=== PATIENT | female | born 1955 | race Hispanic/Latino ===

== ENCOUNTER 2017-06-29 11:51 | Observation (INO) | payer BC, SELFPAY ==
[2017-06-29 12:26] LABS: #Basophils 0.1 thou/uL (0.0-0.2); #Eosinphils 0.6 thou/uL (0.0-0.7); #Lymphocytes 2.6 thou/uL (1.20-3.40); #Monocytes 0.7 thou/uL (0.11-0.59); #Neutrophils 5.5 thou/uL (1.40-6.50); %Basophils 1.5 % (0.0-1.0); %Eosinophils 6.5 % (0.0-10.0); %Monocytes 7.7 % (0.0-10.0); Hematocrit 39.4 % (36.0-47.0); Mean Platelet Volume 8.7 fL (7.4-10.4); Red Blood Cell (RBC) Count 4.17 mill/uL (4.20-5.40); White Blood Cell (WBC) Count 9.6 thou/uL (4.8-10.8)
[2017-06-29 12:38] LABS: Troponin I Less than 0.010 ng/mL (< 0.028)
[2017-06-29 12:49] LABS: ALT (SGPT) 19 U/L (8-55); AST (SGOT) 25 U/L (5-34); Alkaline Phosphatase 70 U/L (40-150); Anion Gap 17 mmol/L (10-20); BUN (Urea Nitrogen) 15 mg/dL (9.8-20.1); Bilirubin, Total 0.5 mg/dL (0.2-1.2); Calc. Creatinine Clearance 0 mL/min (70-130); Calcium 9.8 mg/dL (7.8-10.44); Carbon Dioxide 23 mmol/L (23-31); Chloride 104 mmol/L (98-107); Estimated GFR-MDRD 60; Protein, Total 8.2 g/dL (6.0-8.3)
[2017-06-29] MEDS ORDERED: Ondansetron ODT 4 MG TAB SL PRN (15:32)
[2017-06-29] MEDS ORDERED: Acetaminophen 325 MG TAB PO PRN ×2 (15:32→15:42)
[2017-06-29] MEDS ORDERED: Ondansetron HCl/PF 4 MG/2 ML Vial IVP PRN ×2 (15:32→15:42)
[2017-06-29 15:33] VITALS: BMI 27.3
[2017-06-29] MEDS ORDERED: Eucerin (Mineral Oil/Petrolatum,White) 30 gm Jar TOP PRN (15:42)
[2017-06-29] MEDS ORDERED: Diabetic Tussin 200 MG/10 ML UDCUP PO PRN (15:42)
[2017-06-29] MEDS ORDERED: HumaLOG 300 UNITS/3 ML VIAL SC PRN ×2 (15:42)
[2017-06-29] MEDS ORDERED: Chloraseptic Spray 180 ml Bottle PO PRN (15:42)
[2017-06-29] MEDS ORDERED: Sodium Chloride 0.65% Nasal 44 ML BOT EA NARE PRN (15:42)
[2017-06-29] MEDS ORDERED: Milk Of Magnesia 30 ML UDCUP PO PRN (15:42)
[2017-06-29] MEDS ORDERED: Loratadine 10 MG TAB PO PRN (15:42)
[2017-06-29] MEDS ORDERED: Dextrose 5% in Water 1,000 ML IV PRN (15:42)
[2017-06-29] MEDS ORDERED: Mag-Al 1200 mg/1200 mg/30 ML UDCUP PO PRN (15:42)
[2017-06-29] MEDS ORDERED: Loperamide HCl 2 MG CAP PO PRN (15:42)
[2017-06-29] MEDS ORDERED: Senokot 8.6 MG TAB PO PRN (15:42)
[2017-06-29] MEDS ORDERED: Dextrose 50% Abboject 50 ML SYRINGE SLOW IVP PRN (15:42)
[2017-06-29] MEDS ORDERED: HYDROcodone/Acetaminophen 5/325 mg Tablet PO PRN (15:42)
[2017-06-29] MEDS ORDERED: Zolpidem Tartrate 5 MG TAB PO PRN (15:42)
[2017-06-29] MEDS ORDERED: Ondansetron ODT 4 MG TAB PO PRN (15:42)
--- NOTE | 2017-06-29 16:30 | HP ---
PRIMARY CARE PHYSICIAN: Charlee Multani, Family Nurse Practitioner. REASON FOR ADMISSION: Transfer from [facility] ER for syncope. HISTORY OF PRESENT ILLNESS: A 61-year-old female with a history of diabetes type 2, hypert ension, dyslipidemia, who initially went to the [facility] Emergency Room for evaluation of syncope. Patient's daughter is present at bedside who reports that this morning when the patient was in the k itchen preparing her breakfast. At that time, patient's daughter noticed that she became all of a s udden pale. Her daughter was trying to grab her and she gave out. At that time, patient was diapho retic. She did not have any recall of this part. Patient's daughter called her to help her out. Subsequently, they made her to sit in bed. Patient remembers that part but she was not remem bering falling and her daughter was grabbing to her to prevent her fall. After this, patient was fe eling more weakness. She did not have any real fall or she did not have any real complete loss of c onsciousness. This type of thing happened about 3 months ago s well as 1 month ago. At that time, she was feeling dizzy and she was also feeling palpitations. At this time, she did not have any palpitations. She was not having any chest pain. She denies any constipation, diarrhea, or urinary tract infection s ymptoms. She denies any hematochezia or melena. She denies any lower extremity edema or calf tende rness. She denies any cough or hemoptysis. She denies any seizure-like activity. She denies any f ocal, motor or sensory symptoms. As this patient was having recurrent dizzy spell and that is why the family member was concerned abo ut it and decided to bring her to the ER for evaluation. REVIEW OF SYSTEMS: Please see my HPI for pertinent positives and negatives. All other review of sy stems reviewed and negative except as mentioned in the HPI. Patient's daughter reported that when t his happened at that time she was grabbing her left side of neck and chest as if she was hurting in her chest and neck, but patient did not complain about that pain. She only reported mild headache. Constitutional: Weight loss or gain, ability to conduct usual activities. Skin: Rash, itching. Eyes: Double vision, pain. ENT/Mouth: Nose bleeding, neck stiffness, pain, tenderness. Cardiovascular: Palpitations, dyspnea on exertion, orthopnea. Respiratory: Shortness of breath, wheezing, cough, hemoptysis, fever or night sweats. Gastrointestinal: Poor appetite, abdominal pain, heartburn, nausea, vomiting, constipation, or diar nyasia. Genitourinary: Urgency, frequency, dysuria, nocturia. Musculoskeletal: Pain, swelling. Neurologic/Psychiatric: Anxiety, depression. Allergy/Immunologic: Skin rash, bleeding tendency. PAST MEDICAL HISTORY: Diabetes type 2, diabetic neuropathy, hypertension, dyslipidemia. PAST SURGICAL HISTORY: Cholecystectomy, x1, hysterectomy, history of colon resection for perforated viscus. PAST PSYCHIATRIC HISTORY: Reviewed and negative. SOCIAL HISTORY: Patient lives at home. She smokes about 1/2 pack per day. She denies any alcohol abuse. She denies any other illicit drug abuse. ALLERGIES: No known drug allergies. FAMILY HISTORY: No strong family history of sudden cardiac . No family history of diabetes, h ypertension or coronary artery disease. No family history of cancer or stroke. EMERGENCY ROOM COURSE: Patient was given aspirin 81 mg. CURRENT HOME MEDICATIONS: Aspirin 81 mg p.o. daily, atenolol 50 mg p.o. daily, Lipitor 20 mg p.o. a t bedtime, gabapentin 300 mg p.o. t.i.d., Imdur 20 mg p.o. daily, BuSpar 10 mg p.o. b.i.d., Glucotro l 5 mg p.o. b.i.d. and metformin 850 mg p.o. b.i.d. PHYSICAL EXAMINATION: VITAL SIGNS: On arrival, blood pressure 129/60, pulse 70, respiratory rate 18, temperature 97.3, sa turation 97% on room air and weight 66.2 kilograms. GENERAL: Patient is currently alert, awake, in no acute distress. HEAD: Normocephalic, atraumatic. EYES: Pupils round, reactive to light. Extraocular muscles intact. ENT: Oropharynx within normal limits. Moist mucous membranes. No oral lesions. No pharyngeal alka thema. No exudate. NECK: Supple. Range of motion is normal. No meningeal signs of irritation. LUNGS: Clear to auscultation without any rhonchi or rales. CARDIAC: S1, S2 regular without any murmur. No gallop. No rub. ABDOMEN: Soft, bowel sounds present, nontender, nondistended. No organomegaly. No mass. No supra pubic tenderness. BACK EXAMINATION: Unremarkable. No CVA tenderness. EXTREMITIES: Upper extremity passive movement of all joints are normal. Lower extremity: No calf tenderness. No edema. Good peripheral pulsation. SKIN: No skin rash. HEMATOLOGICAL SYSTEM: No lymphadenopathy. PSYCHIATRIC: Normal affect. NEUROLOGIC: The patient is alert, oriented x3. Cranial nerves II-XII intact. Motor 5/5 in all fou r limbs. Sensation bilaterally symmetrical. No cerebellar sign. SIGNIFICANT LABORATORIES AND IMAGINGS: CBC: WBC 9.6, hemoglobin 14.1, platelet 245,000. BMP: Sod ium 139, potassium 5.0, chloride 104, carbon dioxide 23, BUN 15, creatinine 0.95, glucose 156 and ca lcium 9.8. LFT: AST 25, ALT 19, alkaline phosphatase 70, albumin 4.2, CK-MB 1.0, troponin I less than 0.010. Chest x-ray based on my review, no acute cardiopulmonary process. ASSESSMENT AND PLAN: 1. Syncope/dizziness recurrent at this point based on the description suspecting orthostatic hypote nsion, given the recurrent nature and another risk factors for coronary artery disease. Underlying cardiac arrhythmia needs to be excluded. We will obtain echocardiography and carotid ultrasound as a part of syncope workup. We will check orthostatic vitals and do serial cardiac enzymes. We will also continue overnight with NS 75 mL per hour. We will check lipid profile as a part of her risk s tratification. We will monitor on telemetry floor as well and based on above-mentioned investigatio n, we will decide whether she needs any more evaluation or not. If this patient has recurrent dizzy spell, then she may benefit from outpatient Holter monitoring. 2. Diabetes type 2. We will continue insulin as per sliding scale per protocol. Diabetic diet penelope l be given. We will continue glipizide 5 mg p.o. b.i.d., metformin 850 mg p.o. b.i.d. We will watc h for hypoglycemia. 3. Diabetic neuropathy. We will continue Neurontin 300 mg p.o. b.i.d. 4. Dyslipidemia. We will check lipid profile tomorrow and continue Lipitor 20 mg p.o. at bedtime. 5. History of hypertension. We will rule out orthostatic hypotension. We will continue atenolol 5 0 mg p.o. daily and isosorbide mononitrate 20 mg p.o. daily if blood pressure permits. 6. Deep venous thrombosis prophylaxis not needed because we are expecting discharge in 24 hours. 7. Gastrointestinal prophylaxis, Pepcid 20 mg p.o. b.i.d. CODE STATUS: Patient is FULL CODE. Patient's daughter is surrogate decision maker. Disposition plan based on clinical course, likely within 24 hours based on above-mentioned investiga tion result.
[2017-06-29] MEDS: Sodium Chloride 0.9% 1,000 ML IV SCH (16:41)
--- NOTE | 2017-06-29 19:08 | ULT ---
ULTRASOUND WITH DOPPLER DUPLEX CAROTID: 06/29/17 HISTORY: 61-year-old female status post syncope. TECHNIQUE: Cuevas scale, color flow, and spectral analysis, of major arteries of the neck. FINDINGS: Focal plaque at the proximal right external carotid artery. Little plaque visualized elsewhere. Highest roche systolic velocities in the internal carotid arteries are 55 cm/s on the right and 65 cm /s on the left. ICA/CCA ratios are 0.8 on the right and 0.6 on the left. Vertebral artery flow is antegrade bilaterally. IMPRESSION: No evidence of hemodynamically significant stenosis. POS: [facility]
[2017-06-29 19:42] LABS: Bilirubin Negative (Negative); Blood, Urine Moderate (Negative); Glucose, Urine (Dipstick) Negative (Negative); Ketone, Urine Negative (Negative); Nitrite Positive (Negative); Protein, Urine (Dipstick) Negative (Neg-Trace); Urobilinogen 0.2 mg/dL (0.2-1.0)
[2017-06-29 19:44] LABS: Bacteria/HPF 4+ HPF (None Seen); Hyaline Casts/LPF 0-3 HYALINE CAST LPF (0-3 Hyaline); Squamous Epithelial 0-3 HPF (0-3); WBC/HPF 21-50 HPF (0-3)
[2017-06-29] MEDS: busPIRone HCl 10 MG TAB PO SCH (20:34)
[2017-06-29] MEDS: Famotidine 20 MG TAB PO SCH (20:35)
[2017-06-29] MEDS: Gabapentin 300 MG CAP PO SCH (20:35)
[2017-06-29] MEDS ORDERED: Atorvastatin Calcium 20 MG TAB PO SCH (21:00)
[2017-06-29] MEDS ORDERED: cefTRIAXone\\ROCEPHIN 1 GM in Sodium Chloride 0.9% 100 ML IVPB SCH (22:00)
[2017-06-30] MEDS: Sodium Chloride 0.9% 1,000 ML IV SCH (05:19)
[2017-06-30 07:46] VITALS: BP 118/54; TEMP 97.6
[2017-06-30] MEDS: Gabapentin 300 MG CAP PO SCH (08:47)
[2017-06-30] MEDS: Famotidine 20 MG TAB PO SCH (08:47)
[2017-06-30] MEDS: busPIRone HCl 10 MG TAB PO SCH (08:47)
[2017-06-30] MEDS ORDERED: Isosorbide Mononitrate 20 MG TAB PO SCH (09:00)
[2017-06-30] MEDS ORDERED: Atenolol 50 MG TAB PO SCH (09:00)
[2017-06-30] MEDS ORDERED: Cipro 250 MG TAB PO SCH (10:00)
--- NOTE | 2017-06-30 10:44 | DIS ---
DATE OF ADMISSION: 06/29/2017 DATE OF DISCHARGE: 06/30/2017 PRIMARY CARE PHYSICIAN: Charlee Multani, family nurse practitioner DISCHARGE DISPOSITION: Home. PRIMARY DISCHARGE DIAGNOSES: 1. Dizziness likely due to orthostatic dizziness. 2. Urinary tract infection. SECONDARY DISCHARGE DIAGNOSES: Hypertension, dyslipidemia, diabetes type 2, diabetic neuropathy, an d coronary artery disease. PRIMARY PROCEDURE/OPERATION: None. RADIOLOGICAL INVESTIGATION: Carotid ultrasound was normal. SIGNIFICANT LABORATORY DATA: WBC 9.6, hemoglobin 14.1, and platelets 245. Sodium 139, potassium 5. 0, BUN 15, creatinine 0.95, calcium 9.8. LFTs normal. Cardiac enzymes negative. LDL 62. Urinalys is showed leukocyte esterase moderate with 4+ bacteria. DISCHARGE MEDICATIONS: Ciprofloxacin 500 mg p.o. b.i.d. for 7 days, aspirin 81 mg p.o. daily, ateno lol 25 mg p.o. daily, Lipitor 20 mg p.o. at bedtime, gabapentin 300 mg p.o. b.i.d., isosorbide monon itrate 5 mg p.o. b.i.d., quinapril 20 mg p.o. daily, Ranexa 500 mg p.o. b.i.d., Aldactone 25 mg p.o. daily, buspirone 10 mg p.o. b.i.d., Glucotrol 5 mg p.o. b.i.d., metformin 850 mg p.o. b.i.d., and P rocardia-XL 60 mg p.o. daily. CONTRAINDICATIONS: None. CODE STATUS: FULL CODE. INPATIENT LIQUEFACTION SUPERVISOR: None. ALLERGIES: No known drug allergy. DISCHARGE PLAN: Post hospital, the patient will follow up with primary care physician in 1 week. HOSPITAL COURSE: A 61-year-old female, who came to emergency room with near syncopal episode. She was feeling dizziness and she almost passed out and she had 1 syncopal episode. She was dealing wit h recurrent dizziness at home as well for the last one or two months periodically. Her EKG was unre markable. Her routine blood test was unremarkable. We checked orthostatic vitals that were also ne gative. We did carotid ultrasound that is normal. Echocardiography will be done later on today and result is pending. At this point, I advised this patient and family member that if she has recurre nt dizziness, then she needs to follow up with her own hedis specialist, Dr. Shah to get outpatient Ho lter monitoring if needed. At this point, our suspicious for her dizziness is most likely medicatio n related and that is why I provided necessary patient education to patient as well as daughter abou t holding blood pressure medication if blood pressure runs low and she is also advised to keep track ing record of blood pressure reading at home, so she can see primary care physician for further adju stment of therapy. The patient has abnormal urinalysis and she does not have any fever, she does not have any UTI sympt oms, but I started Cipro. On discharge, I am giving her 7 days of Cipro therapy. Rest of medicatio n will be continued as per previous. The patient is seen and examined at bedside today. All review of systems reviewed with her and delaney richmond. Plan of care discussed with the patient and family member. PHYSICAL EXAMINATION: VITAL SIGNS: Currently, temperature 97.6, pulse 54, blood pressure 118/54, weight 149 pounds. GENERAL: The patient is currently alert, awake, no acute distress. HEAD: Normocephalic, atraumatic. EYES: Pupils round and reactive to light. Extraocular muscle intact. ENT: Oropharynx within normal limits. Moist mucous membranes. No oral lesions. No pharyngeal laka thema, no exudate. NECK: Supple. LUNGS: Clear to auscultation without any rhonchi or rales. CARDIAC: S1 and S2 regular without any murmur. ABDOMEN: Soft and benign. EXTREMITIES: No edema. NEUROLOGIC: Nonfocal examination. After this discharge summary, I spoke with the patient's family member and I advised them to hold Pr ocardia-XL at home for her relatively low blood pressure. The patient will be discharged later on t anurag after echo done.
== END 2017-06-30 10:28 | disposition home or self-care (01) ==
LOC: SCSER 11:51 → 2SW 14:06 → SCSER 14:50
PROVIDERS: ADMIT Internal Medicine; ATTEND Internal Medicine
DX: R42 Dizziness and giddiness (principal); R55 Syncope and collapse; I10 Essential (primary) hypertension; E78.5 Hyperlipidemia, unspecified; E11.40 Type 2 diabetes mellitus with diabetic neuropathy, unspecified; N39.0 Urinary tract infection, site not specified; I25.10 Atherosclerotic heart disease of native coronary artery without angina pectoris; F17.210 Nicotine dependence, cigarettes, uncomplicated; Z79.84 Long term (current) use of oral hypoglycemic drugs; Z79.82 Long term (current) use of aspirin; Z79.899 Other long term (current) drug therapy; Z90.49 Acquired absence of other specified parts of digestive tract; Z90.710 Acquired absence of both cervix and uterus; Z98.891 History of uterine scar from previous surgery
CPT/HCPCS: 36415; 36416; 80053; 80061; 81003; 81015; 82553; 84484; 85025; 87077; 87086; 87186; 93005; 93306; 93880; 96361; 96365; G0378; J0696; J7050

== ENCOUNTER 2018-01-30 11:45 | Outpatient (CLI) | payer OTHER | END 2018-01-30 11:46 | disposition home or self-care (01) | LOC: BICMAMMO 11:45 | PROVIDERS: ATTEND Nurse Practitioner Family | DX: Z12.31 Encounter for screening mammogram for malignant neoplasm of breast (principal) | CPT/HCPCS: 77067 ==

== ENCOUNTER 2018-02-28 17:34 | Emergency (ER) | payer OTHER ==
--- NOTE | 2018-02-28 19:05 | ULT ---
LEFT LOWER EXTREMITY VENOUS DUPLEX EXAM: 02/28/18 INDICATIONS: Left lower extremity pain. Veins of the left lower extremity evaluated with color doppler, spectral analysis and compression. Deep veins of left lower extremity show normal blood flow and compression. No evidence of DVT. IMPRESSION: No evidence of left lower extremity DVT. POS: [facility]
--- NOTE | 2018-02-28 19:59 | RAD ---
LEFT KNEE: 02/28/18 Four views. HISTORY: Knee pain. Medial and lateral joint spaces are preserved. No significant degenerative change. No fracture. I can not exclude small joint effusion. IMPRESSION: There may be small joint effusion seen in the suprapatellar region. No fracture or acute osseous abno rmality identified. POS: [facility]
== END 2018-02-28 20:18 | disposition home or self-care (01) ==
LOC: ERS 17:34
DX: M25.562 Pain in left knee (principal); E78.5 Hyperlipidemia, unspecified; E11.9 Type 2 diabetes mellitus without complications; I10 Essential (primary) hypertension; E11.40 Type 2 diabetes mellitus with diabetic neuropathy, unspecified; F32.9 Major depressive disorder, single episode, unspecified; Z79.899 Other long term (current) drug therapy; Z79.82 Long term (current) use of aspirin; Z79.84 Long term (current) use of oral hypoglycemic drugs; Z87.891 Personal history of nicotine dependence

== ENCOUNTER 2018-03-12 07:25 | Day surgery (SDC) | payer OTHER ==
[2018-03-11 11:30] VITALS: BMI 28.3
--- NOTE | 2018-03-12 06:27 | SS ---
HISTORY OF PRESENT ILLNESS: This is a 62-year-old female referred to me for a colonoscopy because of positive Fit test. The patient had no stool changes. No abdominal tenderness. No abdominal pain. No hematochezia. She has no family history of colon cancer. ALLERGIES: None. MEDICAL ILLNESSES: 1. Hypertension. 2. Diabetes. 3. Depression. 4. Coronary artery disease. 5. Hyperlipidemia. PAST SURGICAL HISTORY: 1. Hysterectomy. 2. Cholecystectomy. 3. 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 She has ____. PHYSICAL EXAMINATION: VITAL SIGNS: Pulse is 70, blood pressure 130/80. HEENT: Conjunctivae clear. CARDIOVASCULAR: First and second sounds normal. LUNGS: Clear to auscultation. ABDOMEN: Soft to palpate. No organomegaly. No tenderness. No mass. ADMITTING DIAGNOSIS: A 62-year-old female with a positive Fit. The patient comes for a colonoscopy.
--- NOTE | 2018-03-12 11:05 | OP ---
DATE OF PROCEDURE: 03/12/2018 SURGEON: Aldo Terry M.D. OPERATIVE PROCEDURE: Colonoscopy with polypectomy. PREOPERATIVE DIAGNOSIS: A 62-year-old female with a positive Fit during routine physi margret exam. The patient is undergoing a colonoscopy. POSTOPERATIVE DIAGNOSES: 1. Diffuse colonic diverticular disease all the way to the right colon. 2. Sessile polyp, hepatic flexure. 3. Hemorrhoids. PROCEDURE NOTE: The patient was placed on her left lateral position and was given sedation by the An esthesia Department. A rectal exam was done before the scope was advanced into the rectum. No lesio ns felt. A Pentax video colonoscope was introduced into the rectum and advanced all the way to the c ecum. The prep is good. The mucosa appeared normal. The appendiceal orifice, ileocecal valve, cecu m, no pathology seen. The patient had diffuse colonic diverticular disease starting at the sigmoid c olon all the way to the right colon. Withdrawal of scope in the cecum, ascending colon, hepatic flex ure, transverse colon, splenic flexure, descending colon, and sigmoid colon showed scattered divertic master. A sessile hepatic flexure polyp removed with snare cautery with good hemostasis. Retroflexion of the scope in the rectum showed hemorrhoids. DISCHARGE PLANNING: This is a 62-year-old Latin-[place] female who came for colonoscopy for evaluat ion of positive Fit. She underwent a colonoscopy with polypectomy. DISCHARGE RECOMMENDATIONS: 1. The patient was advised to call me if she develops abdominal pain, hematochezia. 2. In the absence of any of the symptoms, the patient will come back to me in 2 weeks.
[2018-03-12] MEDS ORDERED: PROPOFOL 200 MG/20 ML VIAL ONE (13:20)
== END 2018-03-12 10:53 | disposition home or self-care (01) ==
LOC: SDC 07:25
PROVIDERS: ATTEND Internal Medicine Gastroenterology
PROC: 0DBL8ZX Excision of Transverse Colon, Via Natural or Artificial Opening Endoscopic, Diagnostic (ICD-10-PCS; principal; 2018-03-12)
DX: K63.5 Polyp of colon (principal); K57.30 Diverticulosis of large intestine without perforation or abscess without bleeding; K64.9 Unspecified hemorrhoids; E11.9 Type 2 diabetes mellitus without complications; F32.9 Major depressive disorder, single episode, unspecified; I25.10 Atherosclerotic heart disease of native coronary artery without angina pectoris; E78.5 Hyperlipidemia, unspecified; Z79.899 Other long term (current) drug therapy
CPT/HCPCS: 88305

== ENCOUNTER 2018-03-19 13:09 | Outpatient (CLI) | payer OTHER | END 2018-03-19 13:10 | disposition home or self-care (01) | LOC: BICMRI 13:09 | PROVIDERS: ATTEND Nurse Practitioner Family | DX: M62.838 Other muscle spasm (principal); S83.242A Other tear of medial meniscus, current injury, left knee, initial encounter; M25.462 Effusion, left knee ==

== ENCOUNTER 2018-04-16 09:44 | Outpatient (CLI) | payer OTHER ==
[2018-04-16 10:53] LABS: #Basophils 0.1 thou/uL (0.0-0.2); #Eosinphils 0.3 thou/uL (0.0-0.7); #Lymphocytes 2.1 thou/uL (1.20-3.40); #Monocytes 0.7 thou/uL (0.11-0.59); #Neutrophils 7.1 thou/uL (1.40-6.50); %Basophils 0.5 % (0.0-1.0); %Eosinophils 2.8 % (0.0-10.0); %Lymphocytes 20.8 % (21.0-51.0); %Monocytes 6.6 % (0.0-10.0); %Neutrophils 69.2 % (42.0-75.0); Hemoglobin 11.5 g/dL (12.0-16.0); Mean Corpuscular HGB CONC 35.3 g/dL (32.0-36.0); Mean Corpuscular Hemoglobin 33.7 pg (27.0-31.0); Mean Corpuscular Volume 95.5 fL (78.0-98.0); Mean Platelet Volume 8.4 fL (7.4-10.4); Platelet Count 247 thou/uL (130-400); RBC Distribution Width 10.9 % (11.5-14.5); Red Blood Cell (RBC) Count 3.41 mill/uL (4.20-5.40); White Blood Cell (WBC) Count 10.3 thou/uL (4.8-10.8)
[2018-04-16 11:13] LABS: Anion Gap 14 mmol/L (10-20); BUN (Urea Nitrogen) 31 mg/dL (9.8-20.1); Calc. Creatinine Clearance 0 mL/min (70-130); Calcium 9.9 mg/dL (7.8-10.44); Carbon Dioxide 26 mmol/L (23-31); Chloride 102 mmol/L (98-107); Estimated GFR-MDRD 34; Glucose 228 mg/dL (80-115); Potassium 4.4 mmol/L (3.5-5.1); Sodium 138 mmol/L (136-145)
== END 2018-04-16 09:45 | disposition home or self-care (01) ==
LOC: LABBT 09:44
PROVIDERS: ATTEND Orthopaedic Surgery
DX: Z01.818 Encounter for other preprocedural examination (principal); S83.242A Other tear of medial meniscus, current injury, left knee, initial encounter
CPT/HCPCS: 80048; 85025; 93005; 93010

== ENCOUNTER 2018-04-17 07:56 | Day surgery (SDC) | payer OTHER ==
--- NOTE | 2018-04-16 09:24 | HP ---
HISTORY OF PRESENT ILLNESS: The patient is a 62-year-old female with a 1 month history of pain and p opping in her left knee, which developed after getting out of a vehicle. She felt a pop and develope d persistent pain, swelling, and popping which has persisted despite rest, restriction of activities and use of antiinflammatory medications. She has had no previous knee problems. PAST MEDICAL HISTORY: The patient has history of hypertension, diabetes, and high cholesterol. CURRENT MEDICATIONS: Metformin, glipizide, Procardia, spironolactone, atenolol, aspirin 81 mg, Accup ril, Lipitor, Lyrica. ALLERGIES: She has no known allergies. FAMILY HISTORY/SOCIAL HISTORY/REVIEW OF SYSTEMS: Otherwise unremarkable. PHYSICAL EXAMINATION: GENERAL: Reveals a healthy female. HEENT: Unremarkable. NECK: Supple. CHEST: Clear. HEART: Regular rate and rhythm. ABDOMEN: Soft, nontender. PELVIC/RECTAL/BREAST: Exams are deferred. EXTREMITIES: Pertinent findings of the left knee. There is a 1+ effusion. There is no warmth or er ythema. There is normal alignment. There is tenderness over the medial joint line. There is no ins tability. Range of motion is 5-110 degrees. There is pain with further flexion. There is a right a ntalgic gait. Neurovascular exam is intact. LABORATORY AND X-RAY FINDINGS: X-rays of the right knee are essentially normal. MRI scan of the lef t knee reveals a large effusion and mild degenerative changes and a medial meniscal tear. IMPRESSION: Internal derangement, left knee with medial meniscal tear, possible component of degener ative joint disease. PLAN: Arthroscopy left knee with partial medial meniscectomy and/or debridement and shaving. The na ture of the surgery, length of recovery, and potential complications such as infection, loss of motio n, incomplete relief, thromboembolic phenomenon, neurovascular injury, post-traumatic degenerative ar thritis, recurrent tear and need for additional treatment or repeat surgery have been discussed in de tail.
[2018-04-16 10:09] VITALS: BMI 27.4
[2018-04-17] MEDS ORDERED: CEFAZOLIN/Water 2 GM/20 ML SYRINGE ONE (08:41)
[2018-04-17] MEDS ORDERED: Fentanyl 100 MCG/2 ML VIAL ONE (09:10)
[2018-04-17] MEDS ORDERED: Ondansetron HCl/PF 4 MG/2 ML Vial ONE (09:28)
[2018-04-17] MEDS ORDERED: ePHEDrine/0.9% NaCl/PF SYRINGE 50 mg/10 ml ONE (09:28)
[2018-04-17] MEDS ORDERED: Lidocaine 1% PF 5 ML VIAL ONE (09:28)
[2018-04-17] MEDS ORDERED: PROPOFOL 200 MG/20 ML VIAL ONE (09:28)
[2018-04-17] MEDS ORDERED: Bupivacaine HCl 0.5%/Epinephrine 1:200,000/PF 30 ml Vial ONE (10:02)
--- NOTE | 2018-04-17 11:33 | OP ---
DATE OF PROCEDURE: 04/17/2018 SURGEON: Chris Durham M.D. ANESTHESIA: General. PREOPERATIVE DIAGNOSES: Medial meniscal tear and degenerative joint disease of left knee. POSTOPERATIVE DIAGNOSES: Medial meniscal tear and degenerative joint disease, left knee. PROCEDURE: Arthroscopy, left knee with partial medial meniscectomy. OPERATIVE FINDINGS: Examination of left knee under anesthesia revealed the knee to be stable. At ar throscopy, there was grade II and early grade III change of the central portion of the patella. Ther e were diffuse grade II changes of the weightbearing surface of the medial femoral condyle and tibial plateau and a complex tear of the posterior horn of the medial meniscus. ACL was intact. Lateral c ompartment was essentially normal. There was some very slight degenerative fraying of the free borde r of the meniscus. The bulk of the meniscus was intact and I elected to leave this alone. NARRATIVE REPORT: After satisfactory anesthesia was induced in supine position, the patient was plac ed in a leg lim and prepped and draped in the routine manner. Left leg was elevated and exsanguin ated with an Esmarch bandage, and the tourniquet inflated to 250 mmHg. [place] arthroscope was intro duced into the anterolateral portal, probed through the anteromedial portal and inflow and outflow ac complished through the scope using the Pianpian arthroscopy pump. Arthroscopy was carried out and the above findings were noted. All findings were documented with the video printer and hard copies were made. Posterior horn of the medial meniscus was debrided with use of basket forceps and motorized s haver and the remaining rim balanced and probed and found to be stable. There was still intact rim o f 4-5 mm. A portion of the medial femoral condyle and undersurface of patella was debrided with a mo torized shaver. The scope was introduced into the anteromedial portal and all compartments visualize d. No additional pathology found. The knee was copiously irrigated through the scope and all instru ments were then withdrawn. 20 mL of 0.5% Marcaine with epinephrine was instilled into the knee joint and an additional 10 mL instilled about the portal sites. The portal sites were closed with 3-0 nyl on and a sterile bulky compressive dressing was applied. The tourniquet deflated after 16 minutes. The foot promptly pinked up. The patient was taken to the recovery room in stable condition. There were no apparent intraoperative complications. The estimated blood loss was negligible. The patient will be discharged home in satisfactory condition. She was instructed on ice, elevation, use of crutches or a walker and home exercise program with Physical Therapy Department. She was giv en written wound care instructions and a prescription for [place] 7.5 for pain, 40 tablets. She will r echeck in my office in 10-14 days or sooner if there any problems prior to that time.
== END 2018-04-17 12:22 | disposition home or self-care (01) ==
LOC: SDC 07:56
PROVIDERS: ATTEND Orthopaedic Surgery
PROC: 0SBD4ZZ Excision of Left Knee Joint, Percutaneous Endoscopic Approach (ICD-10-PCS; principal; 2018-04-17)
DX: S83.232A Complex tear of medial meniscus, current injury, left knee, initial encounter (principal); E11.9 Type 2 diabetes mellitus without complications; E78.00 Pure hypercholesterolemia, unspecified; I10 Essential (primary) hypertension; Z79.84 Long term (current) use of oral hypoglycemic drugs; Z79.899 Other long term (current) drug therapy; Z79.82 Long term (current) use of aspirin
CPT/HCPCS: 80048; 85025; 93005; 93010; G8978-GP-CJ; G8979-GP-CJ; G8980-GP-CJ; J0670; J2001; J2405; J2704; J3010

== ENCOUNTER 2022-02-14 11:56 | Outpatient (CLI) | payer MEDICARE | END 2022-02-14 11:57 | disposition home or self-care (01) | LOC: BICMRI 11:56 | PROVIDERS: ATTEND Family Medicine | DX: M51.16 Intervertebral disc disorders with radiculopathy, lumbar region (principal); M48.061 Spinal stenosis, lumbar region without neurogenic claudication | CPT/HCPCS: 72148 ==

== ENCOUNTER 2022-10-07 18:55 | Inpatient (IN) | payer MEDICARE ==
[2022-10-07] MEDS ORDERED: Activated Charcoal/Sorbitol 25 GM/120 ML TUBE ONE (19:05)
[2022-10-07] MEDS ORDERED: LORazepam 2 MG/ML SYR.(CARPUJECT) ONE (19:05)
[2022-10-07 19:55] LABS: Actual Bicarbonate (HCO3v) 20 mEq/L (22-28); Analyzer IN Cardio ER; Base Excess -3.8 mEq/L (-2.0 to +3.0); Calcium, Ionized (venous) 1.08 mmol/L (1.16-1.32); Chloride (VBG) 105 mmol/L (98-106); Hemoglobin (Hb) 13.9 g/dL (11.7-16.1); Potassium (VBG) 4.07 mmol/L (3.70-5.30); Sodium 136.2 mmol/L (133-146)
[2022-10-07 19:57] LABS: #Basophils 0.1 thou/uL (0.0-0.2); #Eosinphils 0.3 thou/uL (0.0-0.7); #Lymphocytes 1.8 thou/uL (1.20-3.40); #Monocytes 0.6 thou/uL (0.11-0.59); #Neutrophils 3.9 thou/uL (1.40-6.50); %Basophils 1.1 % (0.0-1.0); %Eosinophils 5.1 % (0.0-10.0); %Lymphocytes 26.9 % (21.0-51.0); %Monocytes 8.3 % (0.0-10.0); %Neutrophils 58.6 % (42.0-75.0); Hemoglobin 13.3 g/dL (12.0-16.0); Mean Corpuscular HGB CONC 34.3 g/dL (32.0-36.0); Mean Corpuscular Hemoglobin 34.4 pg (27.0-31.0); Mean Platelet Volume 8.5 fL (7.4-10.4); Platelet Count 200 10x3/uL (130-400); RBC Distribution Width 11.6 % (11.5-14.5); Red Blood Cell (RBC) Count 3.87 mill/uL (4.20-5.40); White Blood Cell (WBC) Count 6.7 10x3/uL (4.8-10.8)
[2022-10-07 20:19] LABS: ALT (SGPT) 14 U/L (8-55); AST (SGOT) 15 U/L (5-34); Acetaminophen Less than 10.0 mcg/mL (10.0-30.0); Albumin 4.1 g/dL (3.4-4.8); Alcohol Less than 10 mg/dL (Less than 10); Alkaline Phosphatase 71 U/L (40-110); Anion Gap 19 mmol/L (10-20); BUN (Urea Nitrogen) 28 mg/dL (9.8-20.1); Bilirubin, Total 0.4 mg/dL (0.2-1.2); Calc. Creatinine Clearance 0 mL/min (70-130); Calcium 9.3 mg/dL (7.8-10.44); Carbon Dioxide 18 mmol/L (23-31); Chloride 104 mmol/L (98-107); Estimated GFR 51; Globulin 3.4 g/dL (2.4-3.5); Glucose 90 mg/dL (80-115); Lipase 65 U/L (8-78); Potassium 4.1 mmol/L (3.5-5.1); Protein, Total 7.5 g/dL (5.8-8.1); Salicylate Less than 8.0 mg/dL (15.0-30.0); Sodium 137 mmol/L (136-145)
[2022-10-07 22:35] LABS: Bacteria/HPF 4+ HPF (None Seen); Bilirubin Negative (Negative); Blood, Urine Trace (Negative); Glucose, Urine (Dipstick) Normal (Negative); Ketone, Urine Negative (Negative); Leukocyte 250 Leu/uL (Negative); Nitrite 1+ (Negative); Protein, Urine (Dipstick) Negative (Neg-Trace); RBC/HPF 0-3 HPF (0-3); Renal Epithelial 0-3 HPF (None Seen); Specific Gravity, Urine 1.018 (1.002-1.036); Squamous Epithelial 0-3 HPF (0-3); Urobilinogen Normal mg/dL (Less than 2); WBC/HPF 21-50 HPF (0-3); pH, Urine 5.5 (5.0-9.0)
[2022-10-07 22:36] LABS: Clarity Hazy (Clear)
[2022-10-07 22:42] LABS: Amphetamine Not Detected (NotDetected); Barbiturates Screen Not Detected (NotDetected); Benzodiazepine Screen Not Detected (NotDetected); Cocaine Metabolite Screen Not Detected (NotDetected); Methadone Not Detected (NotDetected); Methamphetamine Not Detected (NotDetected); Opiate Screen Not Detected (NotDetected); Oxycodone Screen Not Detected (NotDetected); Phencyclidine (PCP) Not Detected (NotDetected); THC/Cannabinoid Screen Not Detected (NotDetected); Tricyclic Screen Not Detected (NotDetected)
[2022-10-07 22:59] LABS: Lactic Acid 2.9 mmol/L (0.5-2.2)
[2022-10-07] MEDS ORDERED: cefTRIAXone\\ROCEPHIN 1 GM VIAL ONE (23:48)
[2022-10-08] MEDS ORDERED: Calcium Carbonate 500 MG ChewTAB PO PRN (01:19)
[2022-10-08] MEDS ORDERED: Ondansetron ODT 4 MG TAB PO PRN (01:19)
[2022-10-08] MEDS ORDERED: Acetaminophen 325 MG TAB PO PRN (01:19)
[2022-10-08] MEDS ORDERED: Lactated Ringer's 1,000 ML IV SCH (01:30)
[2022-10-08 03:05] VITALS: BMI 29.1
[2022-10-08 04:10] LABS: SARS-CoV-2 NAA Rapid Test DETECTED (NotDetected)
[2022-10-08 06:26] LABS: Anion Gap 15 mmol/L (10-20); BUN (Urea Nitrogen) 24 mg/dL (9.8-20.1); Calc. Creatinine Clearance 72 mL/min (70-130); Calcium 8.3 mg/dL (7.8-10.44); Carbon Dioxide 20 mmol/L (23-31); Chloride 108 mmol/L (98-107); Estimated GFR 78; Glucose 69 mg/dL (80-115); Potassium 4.8 mmol/L (3.5-5.1); Sodium 138 mmol/L (136-145)
[2022-10-08] MEDS: cefTRIAXone\\ROCEPHIN 1 GM in Sodium Chloride 0.9% 100 ML IVPB SCH (09:36)
[2022-10-08] MEDS: Famotidine 20 MG TAB PO SCH ×2 (09:36→20:56)
[2022-10-08] MEDS ORDERED: Dextrose 5% in Water 1,000 ML IV PRN (10:56)
[2022-10-08] MEDS ORDERED: HumaLOG 300 UNITS/3 ML VIAL SC PRN (10:56)
[2022-10-08] MEDS ORDERED: Dextrose 50% Abboject 50 ML SYRINGE SLOW IVP PRN (10:56)
[2022-10-08] MEDS ORDERED: Atenolol 25 MG TAB PO SCH ×2 (11:30)
[2022-10-08] MEDS ORDERED: Isosorbide Mononitrate 20 MG TAB PO SCH (12:15)
[2022-10-08] MEDS: Isosorbide Mononitrate 20 MG TAB PO SCH (20:56)
[2022-10-08] MEDS: busPIRone HCl 10 MG TAB PO SCH (20:56)
[2022-10-08] MEDS: Atorvastatin Calcium 20 MG TAB PO SCH (20:56)
[2022-10-08] MEDS: Gabapentin 300 MG CAP PO SCH (20:57)
[2022-10-09 09:59] LABS: #Eosinphils 0.3 thou/uL (0.0-0.7); #Lymphocytes 1.6 thou/uL (1.20-3.40); #Monocytes 0.4 thou/uL (0.11-0.59); #Neutrophils 2.7 thou/uL (1.40-6.50); %Basophils 0.7 % (0.0-1.0); %Eosinophils 6.6 % (0.0-10.0); %Lymphocytes 32.1 % (21.0-51.0); %Monocytes 7.6 % (0.0-10.0); %Neutrophils 52.9 % (42.0-75.0); Hemoglobin 13.1 g/dL (12.0-16.0); Mean Corpuscular HGB CONC 33.7 g/dL (32.0-36.0); Mean Corpuscular Hemoglobin 33.9 pg (27.0-31.0); Mean Platelet Volume 8.7 fL (7.4-10.4); Platelet Count 201 10x3/uL (130-400); RBC Distribution Width 11.7 % (11.5-14.5); Red Blood Cell (RBC) Count 3.85 mill/uL (4.20-5.40)
[2022-10-09 10:15] LABS: Anion Gap 12 mmol/L (10-20); BUN (Urea Nitrogen) 15 mg/dL (9.8-20.1); Calc. Creatinine Clearance 70 mL/min (70-130); Calcium 9.4 mg/dL (7.8-10.44); Carbon Dioxide 26 mmol/L (23-31); Chloride 103 mmol/L (98-107); Estimated GFR 75; Glucose 119 mg/dL (80-115); Potassium 4.4 mmol/L (3.5-5.1); Sodium 137 mmol/L (136-145)
[2022-10-09] MEDS: Ascorbic Acid 500 mg Chewable Tablet PO SCH (10:18)
[2022-10-09] MEDS: busPIRone HCl 10 MG TAB PO SCH ×2 (10:19→20:40)
[2022-10-09] MEDS: Aspirin Chewable 81 MG TAB PO SCH (10:19)
[2022-10-09] MEDS: Isosorbide Mononitrate 20 MG TAB PO SCH ×2 (10:20→20:41)
[2022-10-09] MEDS: Famotidine 20 MG TAB PO SCH ×2 (10:21→20:40)
[2022-10-09] MEDS: Zinc Sulfate 220 MG CAP PO SCH (10:21)
[2022-10-09] MEDS: Atenolol 25 MG TAB PO SCH (10:22)
[2022-10-09] MEDS: Gabapentin 300 MG CAP PO SCH ×2 (10:22→20:40)
[2022-10-09] MEDS: Spironolactone 25 MG TAB PO SCH (10:22)
[2022-10-09] MEDS: cefTRIAXone\\ROCEPHIN 1 GM in Sodium Chloride 0.9% 100 ML IVPB SCH (11:26)
[2022-10-09] MEDS: Atorvastatin Calcium 20 MG TAB PO SCH (20:40)
[2022-10-10 06:28] LABS: #Basophils 0.1 thou/uL (0.0-0.2); #Eosinphils 0.4 thou/uL (0.0-0.7); #Lymphocytes 2.2 thou/uL (1.20-3.40); #Monocytes 0.6 thou/uL (0.11-0.59); #Neutrophils 2.7 thou/uL (1.40-6.50); %Basophils 1.1 % (0.0-1.0); %Lymphocytes 36.4 % (21.0-51.0); %Monocytes 9.6 % (0.0-10.0); Hemoglobin 13.9 g/dL (12.0-16.0); Mean Corpuscular Hemoglobin 33.9 pg (27.0-31.0); Mean Corpuscular Volume 99.8 fl (78.0-98.0); Mean Platelet Volume 8.5 fL (7.4-10.4); Platelet Count 212 10x3/uL (130-400); RBC Distribution Width 11.6 % (11.5-14.5); Red Blood Cell (RBC) Count 4.09 mill/uL (4.20-5.40); White Blood Cell (WBC) Count 5.9 10x3/uL (4.8-10.8)
[2022-10-10 06:43] LABS: Anion Gap 16 mmol/L (10-20); BUN (Urea Nitrogen) 16 mg/dL (9.8-20.1); Calc. Creatinine Clearance 72 mL/min (70-130); Calcium 9.9 mg/dL (7.8-10.44); Carbon Dioxide 25 mmol/L (23-31); Chloride 102 mmol/L (98-107); Estimated GFR 78; Glucose 86 mg/dL (80-115); Potassium 4.3 mmol/L (3.5-5.1); Sodium 139 mmol/L (136-145)
[2022-10-10 08:53] VITALS: BP 161/89; TEMP 98.2
[2022-10-10] MEDS: cefTRIAXone\\ROCEPHIN 1 GM in Sodium Chloride 0.9% 100 ML IVPB SCH (08:58)
[2022-10-10] MEDS: Isosorbide Mononitrate 20 MG TAB PO SCH (08:58)
[2022-10-10] MEDS: Spironolactone 25 MG TAB PO SCH (08:59)
[2022-10-10] MEDS: Gabapentin 300 MG CAP PO SCH (08:59)
[2022-10-10] MEDS: Zinc Sulfate 220 MG CAP PO SCH (08:59)
[2022-10-10] MEDS: busPIRone HCl 10 MG TAB PO SCH (08:59)
[2022-10-10] MEDS: Aspirin Chewable 81 MG TAB PO SCH (08:59)
[2022-10-10] MEDS: Ascorbic Acid 500 mg Chewable Tablet PO SCH (08:59)
[2022-10-10] MEDS: Famotidine 20 MG TAB PO SCH (08:59)
[2022-10-10] MEDS: Atenolol 25 MG TAB PO SCH (09:13)
[2022-10-10] MEDS ORDERED: Cefdinir 300 MG CAP PO SCH ×2 (11:00→21:00)
== END 2022-10-10 12:48 | disposition home or self-care (01) | DRG 689 ==
LOC: ERS 18:55 → ERHOLD 23:12 → SJJU 10-08 02:45
PROVIDERS: ADMIT Student in an Organized Health Care Education/Training Program; ATTEND Internal Medicine
PROC: 8E0ZXY6 Isolation (ICD-10-PCS; principal; 2022-10-07)
DX: N39.0 Urinary tract infection, site not specified (principal); G93.41 Metabolic encephalopathy; U07.1 COVID-19; E11.40 Type 2 diabetes mellitus with diabetic neuropathy, unspecified; N18.9 Chronic kidney disease, unspecified; E11.22 Type 2 diabetes mellitus with diabetic chronic kidney disease; E78.00 Pure hypercholesterolemia, unspecified; I12.9 Hypertensive chronic kidney disease with stage 1 through stage 4 chronic kidney disease, or unspecified chronic kidney disease; Z90.710 Acquired absence of both cervix and uterus; Z90.49 Acquired absence of other specified parts of digestive tract; Z83.3 Family history of diabetes mellitus; Z79.899 Other long term (current) drug therapy; Z79.82 Long term (current) use of aspirin
CPT/HCPCS: 36415; 36416; 51701; 70450; 71045; 80048; 80053; 80306; 80307; 81003; 81015; 82140; 82805; 83605; 83690; 84443; 84484; 85025; 87040; 87077; 87086; 87186; 93005; 96361; 96374; 96375; J0696; J2060; J3490; J7120; U0002

== ENCOUNTER 2022-11-29 13:17 | Outpatient (CLI) | payer MEDICARE | END 2022-11-29 13:18 | disposition home or self-care (01) | LOC: BICMAMMO 13:17 | PROVIDERS: ATTEND Family Medicine | DX: Z12.31 Encounter for screening mammogram for malignant neoplasm of breast (principal); N64.89 Other specified disorders of breast; Z80.3 Family history of malignant neoplasm of breast | CPT/HCPCS: 77063; 77067 ==

== ENCOUNTER 2023-04-27 09:44 | Outpatient (CLI) | payer MEDICARE | END 2023-04-27 09:45 | disposition home or self-care (01) | LOC: SCSRAD 09:44 | PROVIDERS: ATTEND Nurse Practitioner Family | DX: S99.912A Unspecified injury of left ankle, initial encounter (principal) ==

== ENCOUNTER 2024-02-07 10:03 | Day surgery (SDC) | payer MEDICARE ==
[2024-02-06 12:24] VITALS: BMI 27.4
[2024-02-07] MEDS ORDERED: PROPOFOL 40 ML ONE (11:15)
[2024-02-07] MEDS ORDERED: Lidocaine 1% PF 5 ML VIAL ONE (11:15)
[2024-02-07] MEDS ORDERED: PHENYLEPHRINE-NS 100 MCG/ML 10 ML SYRINGE ONE (12:40)
== END 2024-02-07 13:33 | disposition home or self-care (01) ==
LOC: SDC 10:03
PROVIDERS: ATTEND Internal Medicine Gastroenterology
PROC: 0DJD8ZZ Inspection of Lower Intestinal Tract, Via Natural or Artificial Opening Endoscopic (ICD-10-PCS; principal; 2024-02-07)
DX: Z12.11 Encounter for screening for malignant neoplasm of colon (principal); K57.30 Diverticulosis of large intestine without perforation or abscess without bleeding; K64.9 Unspecified hemorrhoids; I10 Essential (primary) hypertension; E11.9 Type 2 diabetes mellitus without complications; E78.5 Hyperlipidemia, unspecified; I25.10 Atherosclerotic heart disease of native coronary artery without angina pectoris; M19.90 Unspecified osteoarthritis, unspecified site; F17.210 Nicotine dependence, cigarettes, uncomplicated; Z86.010 Personal history of colon polyps
CPT/HCPCS: J2704

== ENCOUNTER 2024-03-04 08:39 | Outpatient (CLI) | payer MEDICARE | END 2024-03-04 08:40 | disposition home or self-care (01) | LOC: BICMAMMO 08:39 | PROVIDERS: ATTEND Family Medicine | DX: Z13.820 Encounter for screening for osteoporosis (principal); M81.0 Age-related osteoporosis without current pathological fracture; M85.852 Other specified disorders of bone density and structure, left thigh; Z78.0 Asymptomatic menopausal state | CPT/HCPCS: 77080 ==

== ENCOUNTER 2024-10-28 10:55 | Outpatient (CLI) | payer MEDICARE | END 2024-10-28 10:56 | disposition home or self-care (01) | LOC: BICMRI 10:55 | PROVIDERS: ATTEND Neurological Surgery | DX: M48.061 Spinal stenosis, lumbar region without neurogenic claudication (principal); M48.07 Spinal stenosis, lumbosacral region; M47.816 Spondylosis without myelopathy or radiculopathy, lumbar region; M47.817 Spondylosis without myelopathy or radiculopathy, lumbosacral region | CPT/HCPCS: 72148 ==